=== PATIENT | female | born 1985 | race Caucasian/White ===

== ENCOUNTER 2020-01-29 17:31 | Emergency (ER) | payer MEDICAID, SELFPAY ==
--- NOTE | ~2020-01-29 | CT_ITS ---
EXAMINATION: CT abdomen pelvis w con EXAM DATE: 01/29/2020 19:09 INDICATION: Abdominal pain. TECHNIQUE: Spiral CT of the abdomen and pelvis was performed following intravenous injection of 100 m L Omnipaque 350. Axial, coronal and sagittal images were reviewed. The dose-length product (DLP) fo r this examination was 1679.22 mGy-cm. The exposure was tailored according to patient size (auto mA exposure control), and iterative reconstruction (ASIR) was used as additional dose reduction techniqu e. There is no prior study for comparison. FINDINGS: There are probably poorly calcified gallstones within a contracted gallbladder. There is in distinct gallbladder wall, there may be small amount of pericholecystic fluid or inflammation. No mary iary duct dilation. Could be cholecystitis, maybe chronic given that the gallbladder is not distended . The liver, spleen, adrenal glands and pancreas are unremarkable. Portal and splenic veins are patent . Kidneys enhance symmetrically. There is no hydronephrosis. The uterus and ovaries are unremarka ble, no adnexal mass. The bladder is unremarkable. There is no retroperitoneal or pelvic lymphadeno martine. Small umbilical fat-containing hernia. The appendix is normal. The stomach and small bowel are unremarkable. There is expected amount of c olonic stool. No free intraperitoneal gas. The heart is normal in size. There are no pericardial or pleural effusions. The lung bases are unremarkable. The bones are unremarkable. IMPRESSION: 1. Contracted gallbladder with poorly calcified cholelithiasis suspected and small amount of pericho lecystic fluid or edema. Possible cholecystitis. Consider HIDA scan and/or ultrasound for further mili luation. 2. Small umbilical fat-containing hernia. Reviewed, dictated and finalized at location A. IMPRESSION: 1. Contracted gallbladder with poorly calcified cholelithiasis suspected and s mall amount of pericholecystic fluid or edema. Possible cholecystitis. Consider HIDA scan and/or ultrasound for further evaluation. 2. Small umbilical fat-containing hernia.
[2020-01-29 17:41] VITALS: BP 145/74; PULSE 102; RESP 18; TEMP 36.8; O2SAT 100
[2020-01-29] MEDS: ONDANSETRON INJ 4 MG/2 ML VIAL IV PUSH (18:23)
[2020-01-29] MEDS: FAMOTIDINE 20 MG/2 ML VIAL IV PUSH (18:24)
--- NOTE | 2020-01-29 18:26 | ED.ABDPAIN ---
HPI - Abdominal Pain General Chief Complaint: Abdominal Pain Stated Complaint: abd pain Time Seen by Provider: 01/29/20 17:44 Source: patient Mode of arrival: ambulatory Limitations: no limitations History of Present Illness HPI narrative: This is a 34 year old female that presents to the ER for abdominal pain x 1 week. Reports intermittent sharp pains in her upper abdomen that radiates to her lower abdomen. Associated with nausea. Denies fever, vomiting, dysuria or hematuria. Related Data Allergies Allergy/AdvReac Type Severity Reaction Status Date / Time tramadol Allergy Unknown Verified 01/29/20 17:49 Review of Systems Review of Systems: Narrative: CONSTITUTIONAL: Denies fever GASTROINTESTINAL: Reports abdominal pain, nausea. Denies vomiting, or diarrhea. GENITOURINARY: Denies dysuria or hematuria. All systems reviewed & are unremarkable except as noted in HPI and below PMFSH Past Medical History Medical History (Updated 01/29/20 @ 20:52 by Ivania Theodore PA-C) No active medical problems Social History Social History (Updated 01/29/20 @ 18:31 by Ivania Theodore PA-C) Substance use: never Gender identity (if verbalized by the patient): Female Exam Narrative: Exam Narrative: GENERAL: Well-appearing, obese, and in no acute distress. HEAD: Normocephalic, atraumatic. EYES: EOMI. CHEST: Clear to auscultation. No respiratory distress. No wheezes rales or rhonchi HEART: Regular rate and rhythm. No murmur heard. Normal peripheral pulses. ABDOMEN: Soft, nondistended, normal active bowel sounds. Mild tenderness to palpation of the upper abdomen, without guarding EXTREMITIES: Normal range of motion. No edema. SKIN: Warm, dry, no rash. NEURO: No focal deficits. Alert and oriented x3. PSYCH: Normal mood and affect Course Consultations Consultation #1: Spoke with Dr. Chaudhari about patient and work-up who would like a right upper quadrant ultrasound scheduled for tomorrow. He will follow-up with patient in clinic. Date: 01/29/20 Time: 20:50 Vital Signs Vital signs: Vital Signs Temperature 98.3 F 01/29/20 17:41 Pulse Rate 102 H 01/29/20 17:41 Respiratory Rate 18 01/29/20 17:41 Blood Pressure 145/74 H 01/29/20 17:41 Pulse Oximetry 100 01/29/20 17:41 Temperature 98.3 F 01/29/20 17:41 Pulse Rate 90 01/29/20 20:25 Respiratory Rate 17 01/29/20 20:25 Blood Pressure 109/87 01/29/20 20:25 Pulse Oximetry 98 01/29/20 20:25 MDM - Abdominal Pain MDM Narrative Medical decision making narrative: Patient presents the emergency department for upper abdominal pain that is been present for the last week intermittently. Patient is afebrile and nontoxic-appearing. Vitals are normal. CBC and metabolic panel are without acute changes. Lipase is not elevated. UA is without evidence of infection. Bedside test is negative. CT abdomen pelvis shows a contracted gallbladder with poorly calcified cholelithiasis suspected and a small amount of pericholecystic fluid. Consider HIDA scan and/or ultrasound for further evaluation. Spoke with Dr. Chaudhari about patient and work-up who would like a right upper quadrant ultrasound scheduled for tomorrow. He will follow-up with patient in clinic. Patient is stable and felt appropriate for further outpatient evaluation. She is to follow-up with Dr. Chaudhari. She was given warnings to return to the ER Lab Data Attestation: I reviewed the patient's lab results. Result diagrams: 01/29/20 17:54 01/29/20 17:54 Labs: Lab Results 01/29/20 01/29/20 01/29/20 Range/Units 17:54 17:54 18:48 WBC 8.6 (4.5-10.0) K/mm3 RBC 4.76 (4.2-5.4) M/mm3 Hgb 14.1 (12.0-15.0) g/dL Hct 43.4 (37.0-47.0) % MCV 91.2 (80-100) fl MCH 29.6 (26-34) pg MCHC 32.5 (32-36) g/dl RDW 13.5 (11.5-14.5) % Plt Count 235 (150-375) k/mm3 MPV 11.8 H (7.4-10.4) fl Immature Gran % (Auto) 0.4 (0-0.5) %
[2020-01-29 18:53] LABS: Blood Urea Nitrogen 12 mg/dL (7-17); Calcium 8.7 mg/dL (8.4-10.2); Carbon Dioxide 25 mmol/L (22-30); Chloride 105 mmol/L (98-107); Estimated CRCL calculation 119 ml/min; Estimated Glomerular Filt Rate > 60; Glucose 99 mg/dL (65-105); Potassium 3.9 mmol/L (3.4-5.0); Sodium 137 mmol/L (137-145)
[2020-01-29 18:54] LABS: Alanine Aminotransferase 13 U/L (4-35); Albumin Level 4.1 g/dL (3.5-5.1); Alkaline Phosphatase 71 U/L (38-126); Aspartate Amino Transferase 18 U/L (14-36)
[2020-01-29 19:11] LABS: Hematocrit 43.4 % (37.0-47.0); Hemoglobin 14.1 g/dL (12.0-15.0); Immature Granulocyte Percent A 0.4 % (0-0.5); Lymphocytes Percent Auto 35.1 % (18.3-44.2); Mean Corpuscular HGB Conc 32.5 g/dl (32-36); Mean Corpuscular Hemoglobin 29.6 pg (26-34); Mean Corpuscular Volume 91.2 fl (80-100); Mean Platelet Volume 11.8 fl (7.4-10.4); Neutrophils Percent Auto 54.8 % (45.5-73.1); Platelet Count Result 235 k/mm3 (150-375); Red Blood Count 4.76 M/mm3 (4.2-5.4); Red Cell Distribution Width 13.5 % (11.5-14.5); White Blood Count 8.6 K/mm3 (4.5-10.0)
[2020-01-29 19:12] LABS: Basophils Percent Auto 0.5 % (0.2-1.2); Eosinophils Absolute Auto 0.1 K/mm3 (0-0.3); Eosinophils Percent Auto 1.3 % (0-4.4); Immature Granulocyte Absolute 0.03 K/mm3 (0.00-0.031); Lymphocytes Absolute Auto 3.01 K/mm3 (0.9-3.2); Monocytes Absolute Auto 0.7 K/mm3 (0.1-0.6); Monocytes Percent Auto 7.9 % (2.6-8.5); Neutrophils Absolute Auto 4.7 K/mm3 (1.3-6.7)
[2020-01-29 19:44] LABS: Bilirubin,Total 0.1 mg/dL (0.2-1.3); Lipase 63 U/L (23-300)
[2020-01-29 19:57] LABS: Add Urine Microscopic? YES; Appearance Urine Clear (Clear); Bilirubin Urine Negative (Negative); Blood Urine Negative (Negative); Color Urine Yellow (Yellow); Glucose Urine UA Negative (Negative); Ketones Urine Negative (Negative); Leukocyte Esterase Ur Trace LEU/UL (Negative); Mucus Urine Rare /lpf; Nitrate Urine Negative (Negative); Protein Urine Negative (Negative); RBC Urine 0-2 /hpf (0-2); Squamous Epithelial Cell Urine Many /hpf (Few); WBC Urine 0-3 /hpf
[2020-01-29 19:59] LABS: Specific Grav Ur 1.031 (1.001-1.035)
[2020-01-29 20:25] VITALS: BP 109/87; PULSE 90; RESP 17; O2SAT 98
== END 2020-01-29 20:55 | disposition home or self-care (01) ==
PROVIDERS: Physician Assistant; Emergency Provider Emergency Medicine
DX: K80.20 Calculus of gallbladder without cholecystitis without obstruction (principal)
CPT/HCPCS: 36415; 74177; 80053; 81001; 81025; 83690; 85025; 96365; 96375; 99284; J0131; J2405; Q9967

== ENCOUNTER 2020-02-03 00:21 | Outpatient (CLI) | payer MEDICAID, SELFPAY ==
[2020-02-03 18:40] LABS: SARS-CoV-2 RNA PCR Negative
== END 2020-02-03 00:22 | disposition home or self-care (01) ==
LOC: ANHCOVIDDT 00:21
PROVIDERS: Visit Provider Surgery
DX: Z01.818 Encounter for other preprocedural examination (principal); Z11.59 Encounter for screening for other viral diseases
CPT/HCPCS: 87635; C9803; U0003

== ENCOUNTER 2020-02-06 01:16 | Day surgery (SDC) | payer MEDICAID, SELFPAY ==
[2020-02-02 12:14] VITALS: BMI 55.7
[2020-02-06] VITALS (8 sets, daily range): BP systolic 101–126; BP diastolic 55–77; PULSE 65–90; RESP 12–18; TEMP 36.3–36.7; O2SAT 92–100
[2020-02-06] MEDS: LACTATED RINGERS 1,000 ML 30 ML IV CONT ×2 (09:15→14:54)
--- NOTE | 2020-02-06 09:31 | WPDANESEPPF ---
Anes - Initial Pre Proc Eval Procedure: Operation Date: 02/06/20 11:00 Proposed Procedures p Laparoscopic Cholecystectomy, Possible Intra Operative Cholangiograms - Barrett Chaudhari MD Date/Time: 02/06/20 09:31 Surgeon: Barrett Chaudhari MD Pre Op Diagnosis: chronic cholecystitis Patient Data Age: 34 Gender: F Height: 5 ft 2 in Weight: 138.35 kg Allergies Allergy/AdvReac Type Severity Reaction Status Date / Time tramadol Allergy throat Verified 02/06/20 08:31 swelling Home Medications Medication Instructions Recorded Confirmed Type hydrocodone 5 mg-acetaminophen 325 1 tablet PO Q6H PRN #7 tablet 01/30/20 02/06/20 Rx mg tablet Laboratory Tests 02/06/20 09:12 Total Bilirubin Pending Direct Bilirubin Pending AST Pending ALT Pending Alkaline Phosphatase Pending Total Protein Pending Albumin Pending Amylase Pending Lipase Pending Patient hx anesthesia problems: none Family hx anesthesia problems: none PMFSH Past Medical History Medical History Morbid obesity Smoker Surgical History Surgical History (Updated 02/06/20 @ 09:34 by Prateek Cedeno MD) History of x3 Hx of tonsillectomy Family History Family History Father Cancer Gallbladder attack Mother Heart problem Sibling Heart problem Sibling Heart problem Unknown Diabetes mellitus Heart disease Cancer Cerebrovascular accident Hypertension Social History Social History Smoking status: Current some day smoker Alcohol intake: current Substance use: never Additional occupation/education comments: [employer] Gender identity (if verbalized by the patient): Female Anes - Eval Final PreProcedure Day of Procedure 02/06/20 09:31 Patient weight: super morbidly obese Heart: regular rate and rhythm Lungs: clear to auscultation Airway: Mallampati scale class II Neurological: alert and oriented Last oral intake: >/= 8 hours ASA classification: III Emergent: no Anesthetic plan: proceed Anesthesia type and monitoring: general ETT and standard monitoring Informed Consent: The patient's anesthetic plan and its attendant risks and benefits were discussed with the patient/family/POA. Questions were solicited and answers provided to the satisfaction of the patient/family/POA.
[2020-02-06 09:34] LABS: Alanine Aminotransferase 11 U/L (4-35); Albumin Level 4.3 g/dL (3.5-5.1); Alkaline Phosphatase 67 U/L (38-126); Amylase 72 U/L (30-110); Aspartate Amino Transferase 18 U/L (14-36); Bilirubin,Total 0.3 mg/dL (0.2-1.3); Lipase 54 U/L (23-300)
--- NOTE | 2020-02-06 11:20 | SUR.PREOP ---
Discussed delay with patient. voices understanding. turned off scarlet gallagher per patient's request.
--- NOTE | 2020-02-06 11:42 | SUR.PREOP ---
Up to bathroom.
--- NOTE | 2020-02-06 12:41 | WPDHPUPDATE1 ---
History and Physical Update Update Date/Time: 02/06/20 12:42 History and Physical has been reviewed, including an updated exam of the patient. There are NO changes in the patient's condition. Risks, benefits, and alternatives have been discussed and questions answered. Patient agrees to proceed with procedure.
[2020-02-06] MEDS: ceFAZolin 3 GM/D5W 100 ML 100 ML IVPB (12:48)
[2020-02-06] MEDS: BUPIVACAINE/EPINEPHRINE 0.5% 30 ML VIAL INFILTRATE (13:34)
--- NOTE | 2020-02-06 14:54 | P.OP_ITS ---
Procedure Note - Detailed Date of procedure: 02/06/20 Pre-op diagnosis: chronic cholecystitis Post-op diagnosis: same Procedure performed: Laparoscopic cholecystectomy. Description of procedure: Procedure Details: Patient was seen preoperatively in the holding area and risks, benefits and alternatives confirmed. Patient was taken to the operating room and general anesthesia was induced. A time out was then preformed with the surgery team confirming patient and site of surgery. The abdomen was prepped and draped in the usual sterile fashion. Incision was made just below the umbilicus. Did appear that there was a very small fat containing umbilical hernia probably less than 1 cm in size. Two stay sutures of O- Vicryl were used to elevate the mid-line fascia beneath the umbilicus and a small incision was made under direct vision. The peritoneum was entered. The 12 mm Clement cannula was introduced under direct vision. First under low flow and then under high flow the abdomen was insufflated with carbon dioxide never exceeding a pressure of 14. Three 5 mm trocars were then introduced under direct vision. The following trocars were introduced under direct vision: a 5 mm in the epigastrium and two 5 mm trocars along the right costal margin. There were a few adhesions this to the duodenum at the level of the cystic duct cystic artery. These were carefully dissected these 2 structures and a window of safety a of found slightly superior lateral to them. The gall bladder was grasped and the cystic duct and artery were dissected free and clipped with an 5 mm endo-clip haul truck driver. The cystic duct was clipped X 3 with a 5 mm endoclip- haul truck driver. The cystic duct was then transected. The cystic artery was also transected at this point. The gall bladder was removed using electrocautery and then removed using a large 10 mm grasper via the umbilical incision. Gallbladder was noted to be very long and thin. We did have to open the gallbladder externally after removing portion of it from the umbilicus because I could not get to 2 larger stones through the fascial opening. I did end up enlarging the fascial opening at the umbilicus by about a cm to get the gallbladder out. The trocars were removed visualizing hemostasis and the remaining gas evacuated. The large trocar site at the umbilicus was closed with two 0 vicryl figure of 8 sutures. The 2 stay sutures mentioned above on either side of the fascia were also tied together to help approximate this midline fascia. Further local anesthetic was placed into each incision for postop pain control. The skin incisions were closed with a subcuticular of 4-0 Monocryl. Surgical glue then was applied to all the incisions. Patient tolerated the procedure well was taken to the recovery room in good condition. Anesthesia: GETA Surgeon: Barrett Chaudhari MD Glycerin Operator: ALEX Cassidy, OR 1st assist Estimated blood loss (mL): 10 Drains: No Packing: No Pathology: yes (The gallbladder) Complications: No immediate complications Condition: stable Disposition: PACU Findings: Gallbladder did not seem to be inflamed. There were 2 medium-size stones within the gallbladder that were palpable after removal from the abdomen. There was also a less than 1 cm fascial defect at the umbilicus.
--- NOTE | 2020-02-06 16:32 | SUR.PHASEII ---
[facility] HERE AND READY TO TAKE PT HOME
== END 2020-02-06 16:32 | disposition home or self-care (01) ==
PROVIDERS: Visit Provider Surgery
PROC: 0FT44ZZ Resection of Gallbladder, Percutaneous Endoscopic Approach (ICD-10-PCS; CPT 47562; principal; 2020-02-06 11:00)
DX: K80.10 Calculus of gallbladder with chronic cholecystitis without obstruction (principal); K42.9 Umbilical hernia without obstruction or gangrene; F17.200 Nicotine dependence, unspecified, uncomplicated; E66.01 Morbid (severe) obesity due to excess calories; Z68.43 Body mass index [BMI] 50.0-59.9, adult
CPT/HCPCS: 47562; 36415; 76705; 80076; 82150; 83690; 88300; 88304; A9270; J0131; J0690; J1100; J1170; J2250; J2405; J2704; J2710; J3010; J7120; Q9966

== ENCOUNTER 2020-02-06 06:56 | Outpatient (CLI) | payer MEDICAID, SELFPAY ==
--- NOTE | ~2020-02-06 | US_ITS ---
EXAMINATION: US right upper quadrant DATE: 02/06/2020 07:26 INDICATION: Cholelithiasis. TECHNIQUE: Multiple grayscale and Doppler ultrasound images of the abdomen were obtained. COMPARISON: CT dated 01/29/2020 FINDINGS: The pancreatic head and body are normal in appearance. The pancreatic tail is not visualized. The vi sualized proximal to mid aorta and inferior vena cava are normal. Liver has normal echogenicity and c ontour, with a smooth surface. No liver lesion identified. No intrahepatic biliary duct dilation susp ected. Portal venous flow was seen in the hepatopetal, normal direction and has normal Doppler wavefo rm. There are shadowing calcified gallstones within gallbladder which is not dilated with borderline gallbladder wall thickening which appears decreased since the prior CT. Sonographic Najera sign was r eported as positive by the director of food and nutrition services.The common bile duct measures 3-4 mm in diameter which is norm al. IMPRESSION: 1. Cholelithiasis with positive sonographic Najera sign but without gallbladder distention or definit vianey gallbladder wall thickening which is equivocal for acute cholecystitis. Could consider HIDA scan for further evaluation. Reviewed, dictated and finalized at location A. IMPRESSION: 1. Cholelithiasis with positive sonographic Najera sign but without gallbladder distention or definitive gallbladder wall thickening which is equivocal for ac [place] cholecystitis. Could consider HIDA scan for further evaluation.
== END 2020-02-06 06:57 | disposition home or self-care (01) ==
PROVIDERS: Visit Provider Surgery
DX: K80.10 Calculus of gallbladder with chronic cholecystitis without obstruction (principal); R19.8 Other specified symptoms and signs involving the digestive system and abdomen
CPT/HCPCS: 76705

== ENCOUNTER 2020-03-13 14:46 | Emergency (ER) | payer MEDICAID, SELFPAY ==
--- NOTE | ~2020-03-13 | XR_ITS ---
EXAMINATION: XR ankle LT min 3V DATE: 03/13/2020 16:10 INDICATION: Left ankle pain TECHNIQUE: Anteroposterior, lateral, mortise, and additional oblique view of the ankle were obtained. COMPARISON: None. FINDINGS: There is mild lateral soft tissue swelling of ankle. Bone alignment is normal. There is no fracture. IMPRESSION: 1. No acute osseous abnormality. Reviewed, dictated and finalized at location A.
--- NOTE | ~2020-03-13 | US_ITS ---
EXAMINATION: US OB <=14 wk fetus w TV DATE: 03/13/2020 16:46 INDICATION: Pelvic pain, positive test TECHNIQUE: Real-time pelvic transabdominal and transvaginal ultrasound was performed. COMPARISON: None. FINDINGS: The uterus measures 7.1 x 4.6 x 5.8 cm. The endometrial thickness measures 15 mm. No intrau terine is identified. The right ovary measures 3.0 x 1.8 x 1.7 cm. A 12 mm x 9 mm x 7 mm an echoic area in the right ovary likely represents a cyst or follicle. The left ovary measures 1.8 x 3. 4 x 1.8 cm. There is no free fluid in the pelvis. IMPRESSION: 1. of unknown location. Although no intrauterine gestational sac is seen, this may be due t o early gestation. If the patient is clinically stable, recommend followup with serial beta-hCG and u ltrasound. Reviewed, dictated and finalized at location A. IMPRESSION: 1. of unknown location. Although no intrauterine gestational sac is s een, this may be due to early gestation. If the patient is clinically stable, r ecommend followup with serial beta-hCG and ultrasound.
--- NOTE | ~2020-03-13 | XR_ITS ---
EXAMINATION: XR knee LT 3V DATE: 03/13/2020 16:10 INDICATION: Left knee pain TECHNIQUE: Three views of the left knee were obtained. COMPARISON: None. FINDINGS: Alignment is normal. No fracture or osteochondral lesion. There is mild tricompartmental os teoarthritis characterized by tiny marginal osteophytes. No joint effusion/synovitis. Soft tissues a re unremarkable. IMPRESSION: 1. No acute osseous abnormality. Reviewed, dictated and finalized at location A.
[2020-03-13 14:51] VITALS: BP 130/76; PULSE 101; RESP 20; TEMP 37.2; O2SAT 100
--- NOTE | 2020-03-13 14:56 | ED.GENADULT ---
HPI - General Adult General Chief complaint: Unspecified Stated complaint: lower stomach pain Time Seen by Provider: 03/13/20 14:55 Source: patient Mode of arrival: ambulatory Limitations: no limitations History of Present Illness HPI narrative: Patient is a 35-year-old female G6, P5, who presents for evaluation of abdominal pain as well as ankle and knee pain. Patient reportedly had a fall down the stairs 2 days ago, was mechanical nature, states she tripped over some uneven wooden steps, landing onto her left knee and left ankle and this has been causing her pain. No bruising or deformity, she has been ambulating but this is limited due to pain. Pain in the ankle, knee is dull and aching in nature with radiation into the daniels. No swelling, redness.Pt also with lower abdominal pain. Last menstrual. Was 5 weeks ago. Patient has been having unprotected sexual intercourse, states she may be . She denies fever, chills, chest pain, shortness of breath or upper abdominal pain. Denies any vaginal bleeding, denies back pain. Related Data Allergies Allergy/AdvReac Type Severity Reaction Status Date / Time tramadol Allergy throat Verified 03/13/20 15:00 swelling Review of Systems Review of Systems: Narrative: CONSTITUTIONAL: Denies fever, chills, or sweats. EYES: Denies visual changes ENT: Denies rhinorrhea, congestion, sore throat, or otalgia. CARDIOVASCULAR: Denies chest pain RESPIRATORY: Denies cough or dyspnea. GASTROINTESTINAL: Reports lower abdominal pain and nausea GENITOURINARY: Denies dysuria or hematuria. Denies vaginal bleeding. SKIN: Denies rash or itching. MUSCULOSKELETAL: Denies back pain, joint pain, or myalgia. NEUROLOGIC: Denies headache, numbness, or weakness. [facility] Past Medical History Medical History Morbid obesity Smoker Surgical History Surgical History History of x3 Hx of tonsillectomy Family History Family History Father Cancer Gallbladder attack Mother Heart problem Sibling Heart problem Sibling Heart problem Unknown Diabetes mellitus Heart disease Cancer Cerebrovascular accident Hypertension Social History Social History Smoking status: Current some day smoker Alcohol intake: current Substance use: never Additional occupation/education comments: [employer] Gender identity (if verbalized by the patient): Female Exam Narrative: Exam Narrative: GENERAL: Awake, alert, conversant HEAD: Normocephalic, atraumatic. EYES: PERRLA and EOMI. ENT: Nares clear, no rhinorrhea or epistaxis. Mucous membranes moist. NECK: Supple. CHEST: No respiratory distress, breathing even and non labored HEART: Regular rate, sinus rhythm ABDOMEN:Non distended, mild suprapubic tenderness, no rebound, no guarding, no focal right lower or left lower quadrant tenderness, no epigastric tenderness or right upper quadrant tenderness : External vaginal tissue normal, no lesions. No erythema or edema. No blood present. EXTREMITIES: Decreased range of motion of the left ankle due to pain. Pain is on the lateral aspect of the malleolus, tender to palpation. Mild edema, no ecchymoses. No deformity. No distal tibia/fibula tenderness. Full flexion/extension of the left knee without limitation. No crepitus, no deformity. Patella is nontender. SKIN: Warm, dry, no rash. NEURO:No focal deficits. Alert and oriented x3 Course Vital Signs Vital signs: Vital Signs Temperature 37.2 C 03/13/20 14:51 Pulse Rate 101 H 03/13/20 14:51 Respiratory Rate 03/13/20 14:51 Blood Pressure 130/76 03/13/20 14:51 Pulse Oximetry 100 03/13/20 14:51 Temperature 37.2 C 03/13/20 14:51 Pulse Rate 88 03/13/20 17:26 Respiratory Rate 18 03/13/20 17:26 Blood Pressure 115/64 03/13/20 17:26 Pulse Oximetry
[2020-03-13 15:01] VITALS: BP 122/57; PULSE 104; RESP 18; O2SAT 99
[2020-03-13] MEDS: ONDANSETRON INJ 4 MG/2 ML VIAL IV PUSH (15:09)
[2020-03-13] MEDS: SODIUM CHLORIDE 0.9% IV 1,000 ML 999 ML IV CONT (15:09)
[2020-03-13 15:19] LABS: Basophils Percent Auto 0.5 % (0.2-1.2); Eosinophils Absolute Auto 0.1 K/mm3 (0-0.3); Eosinophils Percent Auto 1.1 % (0-4.4); Hematocrit 40.3 % (37.0-47.0); Hemoglobin 13.6 g/dL (12.0-15.0); Immature Granulocyte Absolute 0.01 K/mm3 (0.00-0.031); Immature Granulocyte Percent A 0.2 % (0-0.5); Lymphocytes Absolute Auto 2.34 K/mm3 (0.9-3.2); Lymphocytes Percent Auto 37.3 % (18.3-44.2); Mean Corpuscular HGB Conc 33.7 g/dl (32-36); Mean Corpuscular Hemoglobin 30.8 pg (26-34); Mean Corpuscular Volume 91.2 fl (80-100); Mean Platelet Volume 11.9 fl (7.4-10.4); Monocytes Absolute Auto 0.4 K/mm3 (0.1-0.6); Monocytes Percent Auto 6.5 % (2.6-8.5); Neutrophils Absolute Auto 3.4 K/mm3 (1.3-6.7); Neutrophils Percent Auto 54.4 % (45.5-73.1); Platelet Count Result 215 k/mm3 (150-375); Red Blood Count 4.42 M/mm3 (4.2-5.4); Red Cell Distribution Width 13.2 % (11.5-14.5); White Blood Count 6.3 K/mm3 (4.5-10.0)
[2020-03-13 15:24] LABS: Add Urine Microscopic? YES; Appearance Urine Clear (Clear); Bilirubin Urine Negative (Negative); Blood Urine Negative (Negative); Color Urine Yellow (Yellow); Glucose Urine UA Negative (Negative); Ketones Urine Negative (Negative); Leukocyte Esterase Ur 1+ LEU/UL (Negative); Mucus Urine Few /lpf; Nitrate Urine Negative (Negative); Protein Urine 1+ mg/dL (Negative); RBC Urine 0-2 /hpf (0-2); Squamous Epithelial Cell Urine Many /hpf (Few); WBC Urine 0-3 /hpf
[2020-03-13 15:28] LABS: Alanine Aminotransferase 12 U/L (4-35); Alkaline Phosphatase 71 U/L (38-126); Aspartate Amino Transferase 16 U/L (14-36); Bilirubin,Total < 0.1 mg/dL (0.2-1.3); Blood Urea Nitrogen 6 mg/dL (7-17); Calcium 8.4 mg/dL (8.4-10.2); Carbon Dioxide 23 mmol/L (22-30); Chloride 107 mmol/L (98-107); Estimated CRCL calculation 151 ml/min; Estimated Glomerular Filt Rate > 60; Glucose 110 mg/dL (65-105); Lipase 72 U/L (23-300); Potassium 3.8 mmol/L (3.4-5.0); Sodium 136 mmol/L (137-145)
[2020-03-13 15:29] LABS: Specific Grav Ur 1.033 (1.001-1.035)
[2020-03-13 17:26] VITALS: BP 115/64; PULSE 88; RESP 18; O2SAT 100
[2020-03-13 18:26] VITALS: BP 112/72; PULSE 82; RESP 20; O2SAT 100
== END 2020-03-13 18:29 | disposition home or self-care (01) ==
PROVIDERS: Emergency Provider Emergency Medicine
DX: O9A.211 Injury, poisoning and certain other consequences of external causes complicating pregnancy, first trimester (principal); S93.492A Sprain of other ligament of left ankle, initial encounter; R10.9 Unspecified abdominal pain; O99.331 Smoking (tobacco) complicating pregnancy, first trimester; F17.200 Nicotine dependence, unspecified, uncomplicated; O99.211 Obesity complicating pregnancy, first trimester; E66.01 Morbid (severe) obesity due to excess calories; Z3A.01 Less than 8 weeks gestation of pregnancy; W10.9XXA Fall (on) (from) unspecified stairs and steps, initial encounter
CPT/HCPCS: 36415; 73562; 73610; 76801; 76817; 80053; 81001; 81025; 83690; 84702; 85025; 96361; 96374; 99284; J2405; J7030

== ENCOUNTER 2020-05-23 22:53 | Emergency (ER) | payer OTHER, SELFPAY ==
[2020-05-23 22:58] VITALS: BP 124/70; PULSE 96; RESP 20; TEMP 36.5; O2SAT 99
[2020-05-24 00:59] VITALS: BP 109/62; PULSE 75; RESP 18; O2SAT 99
[2020-05-24 01:45] LABS: Basophils Percent Auto 0.3 % (0.2-1.2); Eosinophils Absolute Auto 0.1 K/mm3 (0-0.3); Hematocrit 36.7 % (37.0-47.0); Hemoglobin 12.4 g/dL (12.0-15.0); Immature Granulocyte Absolute 0.02 K/mm3 (0.00-0.031); Immature Granulocyte Percent A 0.3 % (0-0.5); Lymphocytes Absolute Auto 2.14 K/mm3 (0.9-3.2); Lymphocytes Percent Auto 35.1 % (18.3-44.2); Mean Corpuscular HGB Conc 33.8 g/dl (32-36); Mean Corpuscular Hemoglobin 30.4 pg (26-34); Monocytes Absolute Auto 0.4 K/mm3 (0.1-0.6); Monocytes Percent Auto 5.9 % (2.6-8.5); Neutrophils Absolute Auto 3.5 K/mm3 (1.3-6.7); Neutrophils Percent Auto 57.4 % (45.5-73.1); Platelet Count Result 172 k/mm3 (150-375); Red Blood Count 4.08 M/mm3 (4.2-5.4); Red Cell Distribution Width 13.1 % (11.5-14.5); White Blood Count 6.1 K/mm3 (4.5-10.0)
[2020-05-24 01:58] LABS: Anion Gap 6 mmol/L (8-16); Blood Urea Nitrogen 6 mg/dL (7-17); Calcium 8.8 mg/dL (8.4-10.2); Carbon Dioxide 24 mmol/L (22-30); Chloride 105 mmol/L (98-107); Estimated Glomerular Filt Rate > 60; Glucose 89 mg/dL (65-105); Potassium 3.4 mmol/L (3.4-5.0); Sodium 135 mmol/L (137-145)
[2020-05-24 02:21] LABS: Add Urine Microscopic? YES; Appearance Urine Cloudy (Clear); Bilirubin Urine Negative (Negative); Blood Urine Negative (Negative); Calcium Oxalate Crystals Urine Many /hpf; Color Urine Yellow (Yellow); Glucose Urine UA Negative (Negative); Ketones Urine 1+ mg/dL (Negative); Leukocyte Esterase Ur Trace LEU/UL (Negative); Mucus Urine Heavy /lpf; Nitrate Urine Negative (Negative); Protein Urine 1+ mg/dL (Negative); Squamous Epithelial Cell Urine Moderate /hpf (Few)
[2020-05-24 02:35] LABS: Specific Grav Ur 1.038 (1.001-1.035)
--- NOTE | 2020-05-24 03:07 | PC.NURSE ---
Patient given water for PO challenge.
--- NOTE | 2020-05-24 03:25 | PC.NURSE ---
Patient tolerated PO challenge well. ERP notified.
--- NOTE | 2020-05-24 03:40 | ED.GENADULT ---
HPI - General Adult General Chief complaint: Fall Stated complaint: head injury, right sided abd cramping Time Seen by Provider: 05/24/20 01:27 History of Present Illness HPI narrative: Patient is a 35-year-old female who is 15 weeks that presents with right lower quadrant abdominal pain as well as some head pain. The main reason she came is because she tripped on a toy of her child's and struck her head onto the ground. She did not lose consciousness. She has no change in vision or hearing. She without any nausea or vomiting. No photophobia. Has not taken any pain medication. She thought she would also be seen for her right side abdominal pain since she is here. There is no urinary symptoms that she reports, she is got no diarrhea. Cannot report any aggravating or alleviating factors. She has had negative ultrasound and does have a known IUP. Related Data Allergies Allergy/AdvReac Type Severity Reaction Status Date / Time tramadol Allergy throat Verified 05/24/20 00:59 swelling Review of Systems Review of Systems: All systems reviewed & are unremarkable except as noted in HPI and below Constitutional: Constitutional: Denies chills, Denies fever(s) and Denies weakness Eyes: Eyes: Denies change in vision and Denies photophobia Cardiovascular: Cardiovascular: Denies chest pain Respiratory: Respiratory: Denies cough and Denies dyspnea Gastrointestinal: Gastrointestinal: Reports abdominal pain, Denies nausea and Denies vomiting Neurologic: Denies dizziness, Reports headache(s), Denies focal weakness and Denies numbness PMF Social History Social History Smoking status: Current some day smoker Alcohol intake: current Substance use: never Additional occupation/education comments: [employer] Gender identity (if verbalized by the patient): Female Exam Narrative: Exam Narrative: GENERAL: Well-appearing, morbidly obese, and in no acute distress. HEAD: Normocephalic, atraumatic. EYES: PERRLA and EOMI. CHEST: Clear to auscultation. No respiratory distress. HEART: Regular rate and rhythm. Normal peripheral pulses. ABDOMEN: Soft, nontender, nondistended. EXTREMITIES: Normal range of motion. No edema. SKIN: Warm, dry, no rash. NEURO: Alert and oriented x3. Course Course Emergency Course: Tolerating oral fluids. Informed of results. Discharge with antibiotics as patient may be having UTI that is causing her right-sided abdominal discomfort. Vital Signs Vital signs: Vital Signs Temperature 97.7 F 05/23/20 22:58 Pulse Rate 96 05/23/20 22:58 Respiratory Rate 20 05/23/20 22:58 Blood Pressure 124/70 05/23/20 22:58 Pulse Oximetry 99 05/23/20 22:58 Temperature 97.7 F 05/23/20 22:58 Pulse Rate 75 05/24/20 00:59 Respiratory Rate 18 05/24/20 00:59 Blood Pressure 109/62 05/24/20 00:59 Pulse Oximetry 99 05/24/20 00:59 Medical Decision Making Vital Signs Vital Signs: Vital Signs Temperature 97.7 F 05/23/20 22:58 Pulse Rate 96 05/23/20 22:58 Respiratory Rate 20 05/23/20 22:58 Blood Pressure 124/70 05/23/20 22:58 Pulse Oximetry 99 05/23/20 22:58 Temperature 97.7 F 05/23/20 22:58 Pulse Rate 75 05/24/20 00:59 Respiratory Rate 18 05/24/20 00:59 Blood Pressure 109/62 05/24/20 00:59 Pulse Oximetry 99 05/24/20 00:59 Lab Data Result diagrams: 05/24/20 01:38 05/24/20 01:38 Labs: Lab Results 05/24/20 05/24/20 05/24/20 Range/Units 01:38 01:38 02:07 WBC 6.1 (4.5-10.0) K/mm3 RBC 4.08 L (4.2-5.4) M/mm3 Hgb 12.4 (12.0-15.0) g/dL Hct 36.7 L (37.0-47.0) % MCV 90.0 (80-100) fl MCH 30.4 (26-34) pg MCHC 33.8 (32-36) g/dl RDW 13.1 (11.5-14.5) % Plt Count 172 (150-375) k/mm3 MPV 12.0 H (7.4-10.4) fl Immature Gran % (Auto) 0.3 (0-0.5) % Neut % (Auto) 57.4 (45.5-73.1) % Lymph % (Auto) 35.
== END 2020-05-24 03:54 | disposition home or self-care (01) ==
PROVIDERS: Emergency Provider Emergency Medicine
DX: O23.42 Unspecified infection of urinary tract in pregnancy, second trimester (principal); O99.332 Smoking (tobacco) complicating pregnancy, second trimester; F17.200 Nicotine dependence, unspecified, uncomplicated; Z3A.15 15 weeks gestation of pregnancy
CPT/HCPCS: 36415; 80048; 81001; 85025; 99283

== ENCOUNTER 2020-06-18 12:22 | Outpatient (CLI) | payer OTHER, SELFPAY ==
[2020-06-18 13:01] LABS: Basophils Percent Auto 0.1 % (0.2-1.2); Eosinophils Percent Auto 0.6 % (0-4.4); Hematocrit 39.3 % (37.0-47.0); Hemoglobin 13.2 g/dL (12.0-15.0); Immature Granulocyte Absolute 0.01 K/mm3 (0.00-0.031); Immature Granulocyte Percent A 0.1 % (0-0.5); Lymphocytes Absolute Auto 1.68 K/mm3 (0.9-3.2); Lymphocytes Percent Auto 24.6 % (18.3-44.2); Mean Corpuscular HGB Conc 33.6 g/dl (32-36); Mean Corpuscular Hemoglobin 30.4 pg (26-34); Mean Corpuscular Volume 90.6 fl (80-100); Mean Platelet Volume 12.1 fl (7.4-10.4); Monocytes Absolute Auto 0.3 K/mm3 (0.1-0.6); Monocytes Percent Auto 4.5 % (2.6-8.5); Neutrophils Absolute Auto 4.8 K/mm3 (1.3-6.7); Neutrophils Percent Auto 70.1 % (45.5-73.1); Platelet Count Result 176 k/mm3 (150-375); Red Blood Count 4.34 M/mm3 (4.2-5.4); Red Cell Distribution Width 13.1 % (11.5-14.5); White Blood Count 6.8 K/mm3 (4.5-10.0)
[2020-06-18 13:07] LABS: Add Urine Microscopic? YES; Appearance Urine Clear (Clear); Bacteria Urine Trace /hpf; Bilirubin Urine Negative (Negative); Blood Urine Negative (Negative); Color Urine Yellow (Yellow); Glucose Urine UA Negative (Negative); Ketones Urine Trace mg/dL (Negative); Leukocyte Esterase Ur Negative LEU/UL (NEGATIVE); Mucus Urine Few /lpf; Nitrate Urine Negative (Negative); Protein Urine Negative (Negative); RBC Urine 0-2 /hpf (0-2); Specific Grav Ur 1.023 (1.001-1.035); Squamous Epithelial Cell Urine Few /hpf (Few); Urobilinogen Urine Negative mg/dL (<2.0); WBC Urine 0-3 /hpf (0-3)
[2020-06-18 13:57] LABS: HIV 1/2 Ab P24 Ag Result Negative (Negative)
[2020-06-18 14:10] LABS: Hepatitis B Surface Antigen Negative (Negative); Rubella IgG Antibody 21.1 IU/ML
[2020-06-18 14:11] LABS: Vitamin D 25 Hydroxy 25.1 ng/mL
[2020-06-18 14:26] LABS: Hepatitis C Virus Antibody Negative (Negative)
[2020-06-21 06:52] LABS: Rapid Plasma Reagin Non-Reactive (NonReactive)
[2020-06-25 18:41] LABS: CF Result NEGATIVE (NEGATIVE); Ethnicity NG
[2020-06-26 15:20] LABS: Hematocrit 40.4 % (35.0-45.0); Hemoglobin 12.8 g/dL (11.7-15.5); MCH 30.6 pg (27.0-33.0); MCV 96.5 FL (80.0-100.0); RDW 15.2 % (11.0-15.0); Red Blood Cell Count 4.19 Mill/uL (3.80-5.10)
== END 2020-06-18 12:23 | disposition home or self-care (01) ==
LOC: ANHLAB 12:23
PROVIDERS: Visit Provider Student in an Organized Health Care Education/Training Program
DX: Z34.90 Encounter for supervision of normal pregnancy, unspecified, unspecified trimester (principal); Z3A.00 Weeks of gestation of pregnancy not specified
CPT/HCPCS: 36415; 81001; 81220; 82306; 83021; 84443; 85025; 86592; 86703; 86762; 86787; 86803; 86850; 86900; 86901; 87086; 87088; 87340; G0432

== ENCOUNTER 2020-08-14 19:10 | Observation (INO) | payer OTHER, SELFPAY ==
--- NOTE | 2020-08-14 19:06 | PC.NURSE ---
Patient transferred to OB at this time, report given to Reynaldo. Patient states she is with right posterior back pain since last night.
--- NOTE | 2020-08-14 19:10 | OBADM ---
This patient, Yuridia Dent, admitted to the OB room OB Post 117 for observation. Patient/family oriented to hospital policies and general routines including ID bracelet, bed and alarms, visiting hours, pain management, procedures, bathroom and other care routines, personal items, smoking policy, room service/diet, and visiting hours. Patient/Family are encouraged to report perceived risks to care and to ask questions if they do not understand what they are told or what they should do.
--- NOTE | 2020-08-14 19:48 | PC.NURSE ---
Dr. Walker notified of admission and assessment. UA ordered.
[2020-08-14 20:09] VITALS: BP 102/47; PULSE 86
[2020-08-14 20:14] VITALS: BMI 55.0
[2020-08-14 20:16] VITALS: BP 108/56; PULSE 83
[2020-08-14] MEDS: ACETAMINOPHEN 500 MG TABLET 1000 MG PO (20:20)
[2020-08-14 20:31] VITALS: BP 117/84; PULSE 81
[2020-08-14 20:40] LABS: Add Urine Microscopic? YES; Appearance Urine Cloudy (Clear); Bacteria Urine Trace /hpf; Bilirubin Urine Negative (Negative); Blood Urine Negative (Negative); Color Urine Yellow (Yellow); Glucose Urine UA Negative (Negative); Ketones Urine Negative (Negative); Leukocyte Esterase Ur 1+ LEU/UL (NEGATIVE); Mucus Urine Rare /lpf; Nitrate Urine Negative (Negative); Protein Urine Negative (Negative); Specific Grav Ur 1.027 (1.001-1.035); Squamous Epithelial Cell Urine Moderate /hpf (Few); WBC Urine 16-20 /hpf (0-3)
[2020-08-14 20:46] VITALS: BP 96/65; PULSE 81
[2020-08-14 21:01] VITALS: BP 90/41; PULSE 76
--- NOTE | 2020-08-15 00:01 | PC.NURSE ---
Pt states she has pain to low back just to right of midline since yesterday. States she also has mild cramping. NO urinary symptoms. Points jsut right of midline as area of pain. Denies any injury.
--- NOTE | 2020-08-15 00:07 | PC.NURSE ---
Dr. Walker notified of admission and assessment. Orders received.
--- NOTE | 2020-08-15 00:13 | PC.NURSE ---
ALL DOCUMENTATION ON THIS PT WAS DONE PER Malena AKHTAR RNC NOT Lisa ASHRAF.
--- NOTE | 2020-08-15 00:17 | PC.NURSE ---
Lab results called to Dr. Walker. Pt appears comfortable and states pain is improved since Tylenol Rates as 4-5. Pt has been on phone for most of visit.
--- NOTE | 2020-08-25 09:33 | P.PNOB_ITS ---
OB - Triage/Final Diagnosis Evaluation Laboratory results: Laboratory Tests 08/14/20 20:23 Urine Color Yellow Urine Appearance Cloudy H Urine pH 7.0 Ur Specific [place] 1.027 Urine Protein Negative Urine Glucose (UA) Negative Urine Ketones Negative Ur Blood (Man) Negative Urine Nitrate Negative Urine Bilirubin Negative Urine Urobilinogen 2.0 H Ur Leukocyte Esterase 1+ H Urine RBC 3-5 H Urine WBC 16-20 H Ur Squamous Epith Cells Moderate H Urine Bacteria Trace Urine Mucus Rare Final Diagnosis (1) Urinary tract infection affecting : Code(s): O23.40 - Unspecified infection of urinary tract in , unspecified trimester Status: Acute
== END 2020-08-14 21:55 | disposition home or self-care (01) ==
PROVIDERS: Admitting Provider Student in an Organized Health Care Education/Training Program; Visit Provider Student in an Organized Health Care Education/Training Program
DX: O23.40 Unspecified infection of urinary tract in pregnancy, unspecified trimester (principal); Z3A.00 Weeks of gestation of pregnancy not specified
CPT/HCPCS: 81001; 87086; 87088; 87147; A9270; G0378; G0379

== ENCOUNTER 2020-09-02 11:23 | Outpatient (CLI) | payer OTHER, SELFPAY ==
[2020-09-02 13:11] LABS: Basophils Percent Auto 0.3 % (0.2-1.2); Eosinophils Percent Auto 0.6 % (0-4.4); Hematocrit 37.3 % (37.0-47.0); Hemoglobin 12.4 g/dL (12.0-15.0); Immature Granulocyte Absolute 0.03 K/mm3 (0.00-0.031); Immature Granulocyte Percent A 0.4 % (0-0.5); Lymphocytes Absolute Auto 1.53 K/mm3 (0.9-3.2); Lymphocytes Percent Auto 21.4 % (18.3-44.2); Mean Corpuscular HGB Conc 33.2 g/dl (32-36); Mean Corpuscular Hemoglobin 30.5 pg (26-34); Mean Corpuscular Volume 91.6 fl (80-100); Mean Platelet Volume 11.7 fl (7.4-10.4); Monocytes Absolute Auto 0.3 K/mm3 (0.1-0.6); Monocytes Percent Auto 4.3 % (2.6-8.5); Neutrophils Absolute Auto 5.2 K/mm3 (1.3-6.7); Platelet Count Result 190 k/mm3 (150-375); Red Blood Count 4.07 M/mm3 (4.2-5.4); Red Cell Distribution Width 12.9 % (11.5-14.5); White Blood Count 7.1 K/mm3 (4.5-10.0)
[2020-09-02 13:30] LABS: Glucose 1 Hour PP 50gm Dose 145 mg/dL
== END 2020-09-02 11:24 | disposition home or self-care (01) ==
LOC: ANHLAB 11:24
PROVIDERS: Visit Provider Student in an Organized Health Care Education/Training Program
DX: Z34.90 Encounter for supervision of normal pregnancy, unspecified, unspecified trimester (principal); Z3A.00 Weeks of gestation of pregnancy not specified
CPT/HCPCS: 36415; 82947; 85025

== ENCOUNTER 2020-09-07 08:23 | Outpatient (CLI) | payer OTHER, SELFPAY ==
[2020-09-07 08:59] LABS: Glucose Fasting Gestational 92 mg/dL (>/=95)
[2020-09-07 10:29] LABS: Glucose 1 Hour Gest 150 mg/dL (>/=180)
[2020-09-07 11:32] LABS: Glucose 2 Hour Gest 106 mg/dL (>/= 155)
[2020-09-07 12:53] LABS: Glucose 3 Hour Gest 54 mg/dL (>/=140)
== END 2020-09-07 08:24 | disposition home or self-care (01) ==
PROVIDERS: Visit Provider Student in an Organized Health Care Education/Training Program
DX: R73.09 Other abnormal glucose (principal)
CPT/HCPCS: 36415; 82951; 82952

== ENCOUNTER 2020-10-21 11:12 | Outpatient (CLI) | payer OTHER, SELFPAY ==
[2020-10-21 11:53] LABS: Basophils Percent Auto 0.2 % (0.2-1.2); Eosinophils Percent Auto 0.5 % (0-4.4); Hematocrit 37.6 % (37.0-47.0); Hemoglobin 12.7 g/dL (12.0-15.0); Immature Granulocyte Absolute 0.02 K/mm3 (0.00-0.031); Immature Granulocyte Percent A 0.2 % (0-0.5); Lymphocytes Absolute Auto 1.81 K/mm3 (0.9-3.2); Lymphocytes Percent Auto 22.5 % (18.3-44.2); Mean Corpuscular HGB Conc 33.8 g/dl (32-36); Mean Corpuscular Hemoglobin 29.6 pg (26-34); Mean Corpuscular Volume 87.6 fl (80-100); Mean Platelet Volume 12.3 fl (7.4-10.4); Monocytes Absolute Auto 0.5 K/mm3 (0.1-0.6); Monocytes Percent Auto 6.2 % (2.6-8.5); Neutrophils Absolute Auto 5.6 K/mm3 (1.3-6.7); Neutrophils Percent Auto 70.4 % (45.5-73.1); Platelet Count Result 218 k/mm3 (150-375); Red Blood Count 4.29 M/mm3 (4.2-5.4); Red Cell Distribution Width 13.5 % (11.5-14.5)
[2020-10-21 12:45] LABS: HIV 1/2 Ab P24 Ag Result Negative (Negative)
[2020-10-22 08:50] LABS: Rapid Plasma Reagin Non-Reactive (NonReactive)
== END 2020-10-21 11:13 | disposition home or self-care (01) ==
PROVIDERS: Visit Provider Student in an Organized Health Care Education/Training Program
DX: Z34.83 Encounter for supervision of other normal pregnancy, third trimester (principal)
CPT/HCPCS: 36415; 85025; 86592; 86703; G0432

== ENCOUNTER 2020-11-08 05:07 | Inpatient (IN) | payer OTHER, SELFPAY ==
[2020-11-08] VITALS (42 sets, daily range): BP systolic 62–136; BP diastolic 43–83; PULSE 34–158; RESP 13–20; TEMP 36.3–36.9; O2SAT 87–100; BMI 56.6
--- NOTE | 2020-11-08 05:43 | LDADM ---
This patient, Yuridia Dent, was admitted to Labor/Delivery/Recovery 120 on 11/08/20 at 05:07. Plans for labor, pain management and were discussed with patient. Patient/family oriented to hospital policies and general routines including ID bracelet, bed and alarms, visiting hours, pain management, procedures, bathroom and other care routines, personal items, smoking policy, room service/diet and guest tray routines, security routines, and visiting hours. Patient/Family are encouraged to report perceived risks to care and to ask questions if they do not understand what they are told or what they should do. See OBIX for further documentation.
[2020-11-08 05:58] LABS: Basophils Percent Auto 0.2 % (0.2-1.2); Eosinophils Absolute Auto 0.1 K/mm3 (0-0.3); Eosinophils Percent Auto 0.7 % (0-4.4); Hematocrit 39.9 % (37.0-47.0); Hemoglobin 13.4 g/dL (12.0-15.0); Immature Granulocyte Absolute 0.04 K/mm3 (0.00-0.031); Immature Granulocyte Percent A 0.5 % (0-0.5); Lymphocytes Absolute Auto 2.38 K/mm3 (0.9-3.2); Mean Corpuscular HGB Conc 33.6 g/dl (32-36); Mean Corpuscular Hemoglobin 29.6 pg (26-34); Mean Corpuscular Volume 88.3 fl (80-100); Mean Platelet Volume 12.2 fl (7.4-10.4); Monocytes Absolute Auto 0.5 K/mm3 (0.1-0.6); Monocytes Percent Auto 5.9 % (2.6-8.5); Neutrophils Absolute Auto 5.8 K/mm3 (1.3-6.7); Neutrophils Percent Auto 65.7 % (45.5-73.1); Platelet Count Result 225 k/mm3 (150-375); Red Blood Count 4.52 M/mm3 (4.2-5.4); Red Cell Distribution Width 14.1 % (11.5-14.5); White Blood Count 8.8 K/mm3 (4.5-10.0)
[2020-11-08] MEDS: LACTATED RINGERS 1,000 ML 125 ML IV CONT ×2 (06:09→07:07)
--- NOTE | 2020-11-08 07:25 | PM.IMHP ---
H&P: HPI History of Present Illness Date/Time: 11/08/20 07:25 The patient is a 35 year old LMP 02/07/20. She is dated by LMP consistent with an ultrasound performed at 5 weeks gestation at [facility] in [place] on 03/16/20. She is currently 39 weeks 2 days gestation with an HO 11/13/20. Patient initiated care at 18 weeks gestation. She has a history of two uncomplicated NSVDs followed by three C/S. She presents to L&D today for a scheduled repeat section. Patient reports feeling well. Denies any vaginal bleeding, leakage of fluid, or contractions. Reports good movement. Discussion was had with patient regarding risks of increasing number of pregnancies and sections. Patient implied an understanding and declines permanent sterilization at this time. Chief Complaint: Repeat section Narrative: Yuridia Dent is a 35 year old female Review of Systems Review of Systems: All systems reviewed & are unremarkable except as noted in HPI and below Constitutional: Constitutional: Reports as per HPI, Reports no additional constitutional complaints, Denies chills, Denies fever(s), Denies headache(s) and Denies night sweats Eyes: Eyes: Reports as per HPI and Reports no additional eye complaints ENT: Reports system reviewed and no additional complaints, except as documented, Reports as per HPI, Reports Normal hearing present and Denies headache(s) Cardiovascular: Cardiovascular: Reports as per HPI, Reports no additional cardiovascular complaints, Denies chest pain and Denies dyspnea Respiratory: Respiratory: Reports as per HPI, Reports no additional respiratory complaints, Denies cough and Denies dyspnea Gastrointestinal: Gastrointestinal: Reports as per HPI, Reports no additional gastrointestinal complaints, Denies abdominal pain, Denies change in bowel habits, Denies change in stool character, Denies nausea and Denies vomiting Genitourinary: Genitourinary: Reports no additional female genitourinary complaints, Reports as per HPI, Denies abnormal vaginal bleeding, Denies genital lesions, Denies hot flashes, Denies dyspareunia, Denies pelvic pain, Denies sexual dysfunction, Denies urinary incontinence, Denies vaginal discharge, Denies vaginal dryness and Denies vaginal odor Musculoskeletal: Musculoskeletal: Reports no additional musculoskeletal complaints and Reports as per HPI Integumentary/Breasts: Skin/Breast: Reports system reviewed and no additional complaints, except as docu, Reports as per HPI, Denies breast pain and Denies nipple discharge Neurologic: Reports system reviewed and no additional complaints, except as documented, Reports as per HPI, Reports Normal hearing present and Denies headache(s) Psychiatric: Psychiatric: Reports no additional psychiatric complaints, Reports as per HPI, Denies anxiety and Denies depression Endocrine: Endocrine: Reports no additional endocrine complaints and Reports as per HPI Hematologic/Lymphatic: Hematologic/Lymphatic: Reports no additional hematologic/lymphatic complaints and Reports as per HPI Allergic/Immunologic: Allergic/Immunologic: Reports no additional allergic/immunologic complaints and Reports as per HPI PMFSH Past Medical History Medical History Anxiety Depression Morbid obesity Smoker Surgical History Surgical History History of x3 Hx of tonsillectomy S/P cholecystectomy Family History Family History Father Cancer Gallbladder attack Mother Heart problem Sibling Heart problem Sibling Heart problem Unknown Diabetes mellitus Heart disease Cancer Cerebrovascular accident Hypertension Social History Social History Smoking packs per day: 0.5 Smoking cigarettes per day: 10.0 Smoking status: Current every day smoker Tobacco ty
--- NOTE | 2020-11-08 07:28 | WPDHPUPDATE1 ---
History and Physical Update Update Date/Time: 11/08/20 07:28 History and Physical has been reviewed, including an updated exam of the patient. There are NO changes in the patient's condition. Risks, benefits, and alternatives have been discussed and questions answered. Patient agrees to proceed with procedure.
--- NOTE | 2020-11-08 09:13 | PM.PROC ---
Procedure Note - Detailed Date of procedure: 11/08/20 Pre-op diagnosis: C Section Intrauterine at 39w2d Previous section x 3 Post-op diagnosis: same Procedure performed: Repeat low transverse section via Pfannenstiel Description of procedure: The patient was taken to the operating room, where she self-transferred to the operating room table. Spinal anesthesia was administered and found to be adequate. The patient was placed in dorsal supine position with a leftward tilt. She was prepped and draped in the usual sterile fashion. A Traxi panniculus retractor was also placed. Spinal anesthesia was tested and found to be adequate. A Pfannenstiel skin incision was made with a scalpel and carried through to underlying layer of fascia with the Bovie. The fascia was incised in the midline and the incision was extended laterally with the use of forceps and Shaver scissors. The inferior aspect of the fascial incision was grasped with Sarah clamps, elevated, and the underlying rectus muscle were dissected off with Shaver scissors. Attention was then turned to the superior aspect of the fascial incision, which in a similar manner, was grasped with Sarah clamps, elevated, and the underlying rectus muscles were also dissected off with Shaver scissors. The rectus muscles were in the midline and the peritoneal cavity was entered bluntly. This incision was extended superiorly and inferiorly with good visualization of the bladder and care was taken to avoid blood vessels. A bladder blade was inserted. The vesicouterine peritoneum was identified and incised sharply with Metzenbaum scissors. This incision was extended laterally with Metzenbaum scissors and a bladder flap was created digitally. The bladder blade was replaced. The lower uterine segment was noted to be ballooning out and extremely thin. A transverse uterine incision slightly higher than the thin portion of the lower uterine segment was made with a scalpel. This incision was extended laterally with bandage scissors. Amniotomy was performed. Clear amniotic fluid was noted. The infant's head was grasped and gently guided to the level of the uterine incision. The 's head was delivered easily and atraumatically without difficulty followed by the neck, shoulders, and rest of body with gentle fundal pressure. The infant's nose and mouth were suctioned bulb suction. The was crying spontaneously. The cord was clamped and cut and the infant was handed off to waiting nursing staff. A segment of cord was collected for cord gases. Cord blood was also collected. The placenta was then delivered manually with gentle uterine massage. Uterus was exteriorized and cleared of all clots and debris. The uterine incision was reapproximated with 0 Vicryl primarily in a running, locked fashion. Due to the thin lower uterine segment, a few puncture sites made with the needle tip tore and expanded, creating larger defects. These defects were closed with a combination of 0 Vicryl and 0 Monocryl short running locked segments in addition to the longer running locked segment spanning the entire length of the uterine incision. A second imbricating layer using 0 Monocryl performed. A few areas of bleeding along the incision were noted and made hemostatic with figure of eight sutures using 0 Monocryl. Excellent hemostasis was achieved. Intraoperatively, the patient was made aware of the findings and concern was expressed regarding risk of future pregnancies, particularly based on the thin lower uterine segment and fairly extensive repair required to close uterine incision. On inspection, the rest of the uterus, ovaries, and fallopian tubes appeared to be normal bilaterally. The uterus was replaced into the abdominal cavity. The gutters were cleared of all clots and debris. The uterine incision was inspected again and noted to be hemostatic. Hemaderm was applied across the uterine incision. Interceed was also applied across the neris
--- NOTE | 2020-11-08 09:16 | PM.OBPRVD ---
OB - Delivery Note Procedure Delivery date: 11/08/20 Procedure: Procedures Operation Date: 11/08/20 07:30 Actual Procedures Side Surgeon p Repeat Section Silvia Walker MD events: Previous Intrapartal events: None Route of delivery: Quantitative Blood Loss (ml): 615 Anesthesia type: Spinal Disposition: floor Complications: No immediate complications Baby Date of : 11/08/20 Time of : 08:00 Weeks of gestation at delivery: 39 Infant gender: Female Weight (pounds): 6 Weight (ounces): 2 presentation: vertex Placenta delivery description: Manual Removal cord vessel description: 3 Vessels score one minute: 8 score five minutes: 9
[2020-11-08] MEDS: OXYTOCIN 30 UNITS/NS 500 ML 30 UNITS/500 ML BAG 125 UNITS IV CONT (09:44)
[2020-11-08] MEDS: LORATADINE 10 MG TABLET PO (09:53)
[2020-11-08 11:01] LABS: Rapid Plasma Reagin Non-Reactive (NonReactive)
[2020-11-08] MEDS: KETOROLAC 30 MG/ML VIAL (*BKC) IV PUSH (12:43)
[2020-11-08] MEDS: HYDROcodone/acetaminophen (*CRX) 10-325 MG TABLET 1 TAB PO (16:27)
[2020-11-08] MEDS: DOCUSATE SODIUM 100 MG CAPSULE PO (16:27)
[2020-11-08] MEDS: SIMETHICONE 80 MG TAB.CHEW PO (16:27)
[2020-11-08] MEDS: diphenhydrAMINE HCl CAP 25 MG CAPSULE PO (19:04)
[2020-11-08] MEDS: IBUPROFEN 600 MG TABLET PO (19:04)
[2020-11-09 00:05] VITALS: BP 103/66; PULSE 81; RESP 16; TEMP 36.3; O2SAT 98
[2020-11-09] MEDS: HYDROcodone/acetaminophen (*CRX) 10-325 MG TABLET 1 TAB PO ×7 (00:16→23:45)
[2020-11-09] MEDS: IBUPROFEN 600 MG TABLET PO ×3 (04:26→20:28)
[2020-11-09 04:30] VITALS: BP 123/63; PULSE 84; RESP 16; TEMP 37; O2SAT 97
[2020-11-09 05:37] LABS: Basophils Percent Auto 0.1 % (0.2-1.2); Eosinophils Absolute Auto 0.1 K/mm3 (0-0.3); Eosinophils Percent Auto 0.7 % (0-4.4); Hematocrit 34.9 % (37.0-47.0); Hemoglobin 11.2 g/dL (12.0-15.0); Immature Granulocyte Absolute 0.02 K/mm3 (0.00-0.031); Immature Granulocyte Percent A 0.3 % (0-0.5); Lymphocytes Percent Auto 23.5 % (18.3-44.2); Mean Corpuscular HGB Conc 32.1 g/dl (32-36); Mean Corpuscular Hemoglobin 29.1 pg (26-34); Mean Corpuscular Volume 90.6 fl (80-100); Mean Platelet Volume 12.3 fl (7.4-10.4); Monocytes Absolute Auto 0.5 K/mm3 (0.1-0.6); Monocytes Percent Auto 7.5 % (2.6-8.5); Neutrophils Absolute Auto 4.6 K/mm3 (1.3-6.7); Neutrophils Percent Auto 67.9 % (45.5-73.1); Platelet Count Result 167 k/mm3 (150-375); Red Blood Count 3.85 M/mm3 (4.2-5.4); Red Cell Distribution Width 14.1 % (11.5-14.5); White Blood Count 6.8 K/mm3 (4.5-10.0)
[2020-11-09 08:20] VITALS: BP 104/60; PULSE 84; RESP 18; TEMP 36.2; O2SAT 99
[2020-11-09] MEDS: DOCUSATE SODIUM 100 MG CAPSULE PO ×2 (08:27→17:13)
[2020-11-09] MEDS: MULTIVIT/MIN/PREN/FOL AC/IRON TABLET 1 TAB PO (08:27)
--- NOTE | 2020-11-09 09:11 | P.PNOB_ITS ---
OB - PN: Subj Subjective Date/time seen: 11/09/20 09:11 Patient doing well this morning. Pain reasonably controlled with medication. Denies any headache, chest pain, shortness of breath, nausea or vomiting. Tolerating PO diet. Ambulating without difficulty. Voiding well. Passing flatus. OB - PN: Obj Data Labs CBC & Chem 7: 11/09/20 04:31 Labs: Laboratory Results - last 24 hr 11/08/20 11/09/20 05:38 04:31 WBC 6.8 RBC 3.85 L Hgb 11.2 L Hct 34.9 L MCV 90.6 MCH 29.1 MCHC 32.1 RDW 14.1 Plt Count 167 MPV 12.3 H Immature Gran % (Auto) 0.3 Neut % (Auto) 67.9 Lymph % (Auto) 23.5 [place] % (Auto) 7.5 Eos % (Auto) 0.7 Baso % (Auto) 0.1 L Lymph # (Auto) 1.60 [place] # (Auto) 0.5 Eos # (Auto) 0.1 Baso # (Auto) 0.0 Abs Immat Gran (auto) 0.02 Absolute Neuts (auto) 4.6 Absolute Nucleated RBC 0.0 Nucleated RBC % 0.0 RPR Non-reactive OB - PN A/P Assessment and Plan (1) Delivery by section: Status: Acute Assessment and Plan: POD#1 doing well continue routine postoperative care pain management PRN encourage ambulation Time Spent With Patient Time: Total time spent is greater than 50% in coordination of care (as documented) at patient's floor/unit and/or counseling patient: Exam Const: General: cooperative, healthy appearing, comfortable and no acute distress GI: Other: soft, obese, incision covered with Rob dressing Extrem: Right lower extremity: no edema Left lower extremity: no edema Other: no calf tenderness
--- NOTE | 2020-11-09 09:29 | WPDANLDPN2 ---
Anes-Prog Note L&D Date/Time: 11/09/20 09:29 Comfortable throughout: section Neuraxial method: spinal Epidural/Spinal procedure site: clean & non-tender Neuro status: Neuro function grossly intact. Cardiovascular status: normal Respiratory status: normal Airway patency: baseline Mental status: baseline Post-Op hydration status: normal Vital Signs: Last Vital Signs Temp 36.2 C L 11/09/20 08:20 Pulse 84 11/09/20 08:20 Resp 18 11/09/20 08:20 BP 104/60 11/09/20 08:20 Pulse Ox 99 11/09/20 08:20 Pain score (VAS): 4 I/O: Intake & Output 11/08/20 11/09/20 11/09/20 23:59 07:59 15:59 Intake Total 700 480 Output Total 1150 7078 500 Balance -450 -2663 -559 Post-procedural complaints: none Patient feedback: Patient satisfied with anesthetic care.
--- NOTE | 2020-11-09 09:29 | WPDANLDNPN2 ---
Anes-Prog Note L&D-Neuraxial Date/Time: 11/09/20 09:29 Neuraxial medications: intrathecal PF morphine Opiod-related complaints: none Patient feedback: Patient satisfied with post-operative pain management.
--- NOTE | 2020-11-09 15:22 | PCCCNOTE ---
Care Coordination Consult: Met with pt. today who reports this is her 6th child. Pt. has a three year old boy at home that she cares for. Pt. also has four other children (9, 12,14,17) who live with other family. Pt. did not provide any other information on where her other children reside. Pt. reports that she had DCFS involvement regarding her four oldest children and therefore other family members have been caring for them for several years. Pt. lives at home alone. Reports the FOB is supportive. Pt. does report her mother and other family is supportive and will assist with any needs at discharge. Pt. plans to sign up for [facility] services and has information to follow up at discharge. resources were provided. Pt. has a car seat, clothing, bottles, crib and other belongings for the baby. Pt. denies any other services or care coordination needs. CC did submit online report to DCFS, reference number [id number]. Received email confirmation in return that DCFS will not come meet with pt. and have not taken a report.
[2020-11-09] MEDS: TETANUS,DIPHTHERIA,AC PERTUSSIS ADULT (0.5 ML) BOOSTRIX IM (17:13)
[2020-11-09 19:20] VITALS: BP 122/81; PULSE 90; RESP 16; TEMP 36.7; O2SAT 98
[2020-11-10] MEDS: diphenhydrAMINE HCl CAP 25 MG CAPSULE PO (01:05)
[2020-11-10] MEDS: IBUPROFEN 600 MG TABLET PO ×3 (02:56→14:27)
[2020-11-10] MEDS: HYDROcodone/acetaminophen (*CRX) 10-325 MG TABLET 1 TAB PO ×3 (02:57→14:26)
[2020-11-10 07:35] VITALS: BP 125/63; PULSE 86; RESP 18; TEMP 36.4; O2SAT 100
[2020-11-10] MEDS: DOCUSATE SODIUM 100 MG CAPSULE PO (09:10)
--- NOTE | 2020-11-10 10:40 | PM.OBPNVD ---
OB - PN: Subj Subjective Date/time seen: 11/10/20 10:40 Patient doing well. Pain well controlled medication. Denies any headache, chest pain, shortness of breath, nausea, or vomiting. Tolerating p.o. diet. Ambulating without difficulty. Voiding without difficulty. Passing flatus. Christopher device in place. OB - PN: Obj Data Labs CBC & Chem 7: 11/09/20 04:31 OB - PN A/P Assessment and Plan (1) Delivery by section: Status: Acute Assessment and Plan: POD#2 doing well continue routine postoperative care encourage ambulation and use of IS pt requesting dc home today, which I think is reasonable discharge pending transportation emergency precautions reviewed CHRISTOPHER care instructions also reviewed f/u in office in 1 week for removal of CHRISTOPHER and wound check Time Spent With Patient Time: Total time spent is greater than 50% in coordination of care (as documented) at patient's floor/unit and/or counseling patient: Exam Const: General: cooperative, healthy appearing, comfortable and no acute distress Nutritional Appearance: obese GI: Inspection: normal to inspection GI Palp: Yes Soft to palpation and Yes Tenderness to palpation present (GI) (appropriately tender) Other: CHRITSOPHER device in place, functioning appropriately with scant amount of old dry blood noted on pad unable to palpate fundus Extrem: Right lower extremity: no edema Left lower extremity: no edema Other: no calf tenderness
--- NOTE | 2020-11-10 11:43 | PM.OBDSVD ---
DS: Admitting Diagnosis Admitting Diagnosis Admitting Diagnosis: Repeat section OB - DS: Summary OB Procedures : None OB Procedures Intrapartum: OB Procedures: : None Peripartum Data Procedures: Procedures Operation Date: 11/08/20 07:30 Actual Procedures Side Surgeon p Repeat Section Silvia Walker MD Time Spent with Patient Time attestation: Total time spent providing and/or coordinating discharge services: Discharge Plan Discharge Attending physician on discharge: Silvia Walker Consulting providers: Mitchell Terry Discharging Clinician: Silvia Walker Anticipated Discharge Date/Time: 11/10/20 11:44 Patient Disposition: Home, Self-Care Activity: as tolerated and pelvic rest Diet: as tolerated and regular Discharge Instructions: Call office ([phone]) to schedule the following appointments: 1. Postoperative/wound check in 1 week. 2. visit in 4-6 weeks. You have a special vacuum dressing on top of your incision. Please leave this dressing in place until your visit. The vacuum pump is designed to turn off automatically. When it does, you do not need to do anything. Just leave the dressing in place until your office visit. You may take Ibuprofen 600mg every 6 hours as needed for pain. I have sent a prescription for a stronger pain medication, [place], to your pharmacy. You may take this as prescribed for breakthrough pain (pain that is not controlled with Ibuprofen). No driving for at least two weeks. You also may not drive while taking narcotics. Pain medication may make you constipated. It may be helpful to take an [id number] stool softener, such as Colace and/or Senokot, along with the pain medication to help lessen constipation. Call office or go to ED for pain not controlled with medication, headache, chest pain, shortness of breath, fever, chills, persistent nausea or vomiting, severe abdominal pain, heavy vaginal bleeding >2 pads/hour, foul vaginal discharge or odor, any redness near incision, severe pain, pus or drainage from incision site, or problems with your breasts. Patient Instructions: Antibiotic Form Stand Alone Forms: General Discharge Information Follow-up/Referrals: Silvia Walker MD [Physician] - Discharge Medications: New hydrocodone-acetaminophen 5-325 mg Tablet 1 - 2 tablet PO Q4-6H PRN (Reason: Moderate Pain (4-6)) Qty: 30 RF: 0 Continued SOUND CONTROLLER-PNV-DHA 28 mg iron- 1 mg-200 mg capsule 1 cap PO DAILY Qty: 90 RF: 0 Date of admission: 11/08/20 05:07 Primary Care Provider: PHYSICIAN,BUSINESS SERVICES ANALYST Admitting Provider: Silvia Walker Attending physician on admission: Silvia Walker Condition: Stable
--- NOTE | 2020-11-10 12:59 | PCCCNOTE ---
Care Coordination: Spoke with pt. today who reports she no longer has a ride home today. Pt. requesting CC contact her insurance for a Med Car home. Pt. reports she now lives in [place] and would like the Med Car to transport herself and baby girl Dent home. Contacted [place] [employer] to provide information including pt.'s [facility] address: [address] [place] [address]. Per [facility] Rep they will be able to transport her home however current wait time is anywhere between 20 minutes and 3 hours. Provided phone number to OB nursing station for [facility] transportation to contact pt. when they are here. Pt. denies any further needs.
--- NOTE | 2020-11-10 13:27 | PC.NURSE ---
0922 Spoke with Care Coordination about pt needing a [employer] for transport home to [facility]. She also wants to curing pickling packer her prescription at [facility]. 0947 CC called and stated to call them back when the pt and are ready to walk out and she will call [employer] to set up the transportation. Pt informed of this plan and she V/U'd.
== END 2020-11-10 14:30 | disposition home or self-care (01) | DRG 540 ==
LOC: ANHLDR 06:17 → ANHOB2 11:38
PROVIDERS: Admitting Provider Student in an Organized Health Care Education/Training Program; Visit Provider Student in an Organized Health Care Education/Training Program
PROC: 10D00Z1 Extraction of Products of Conception, Low, Open Approach (ICD-10-PCS; CPT 59514; principal; 2020-11-08 07:30)
DX: O34.211 Maternal care for low transverse scar from previous cesarean delivery (principal); O99.214 Obesity complicating childbirth; E66.01 Morbid (severe) obesity due to excess calories; O99.334 Smoking (tobacco) complicating childbirth; O99.824 Streptococcus B carrier state complicating childbirth; F17.210 Nicotine dependence, cigarettes, uncomplicated; Z3A.39 39 weeks gestation of pregnancy; Z37.0 Single live birth; Z23 Encounter for immunization
CPT/HCPCS: 36415; 85025; 86592; 86850; 86900; 86901; 90715; A9270; J0131; J1885; J2274; J2405; J2590; J7120